=== PATIENT | male | born 1995 | race Caucasian/White ===

== ENCOUNTER 2021-02-13 02:02 | Outpatient (CLI) | payer SELFPAY | END 2021-02-13 02:03 | disposition critical access hospital (66) | LOC: EMS 02:02 | DX: S01.01XA Laceration without foreign body of scalp, initial encounter (principal); S06.9X9A Unspecified intracranial injury with loss of consciousness of unspecified duration, initial encounter; Y04.8XXA Assault by other bodily force, initial encounter; Y92.481 Parking lot as the place of occurrence of the external cause | CPT/HCPCS: A0425; A0429 ==

== ENCOUNTER 2021-02-13 02:35 | Emergency (ER) | payer SELFPAY ==
[2021-02-13] MEDS ORDERED: KETOROLAC 15 MG/ML VIAL IVP STA (03:03)
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
[2021-02-13 03:18] LABS: BASOPHILS # (AUTO) 0.1 10^3/uL (0.0-0.1); BASOPHILS % (AUTO) 0.9 %; EOSINOPHILS # (AUTO) 0.1 10^3/uL (0.0-0.7); EOSINOPHILS % (AUTO) 1.7 %; HCT - HEMATOCRIT 42.4 % (42.0-52.0); HGB - HEMOGLOBIN 15.6 g/dL (14.0-18.0); LYMPHOCYTES # (AUTO) 1.5 10^3/uL (1.5-3.5); LYMPHOCYTES % (AUTO) 23.8 %; MEAN CORPUSCULAR HEMOGLOBIN 33.2 pg (27.0-31.0); MEAN CORPUSCULAR HGB CONC 36.8 g/dL (32.0-36.0); MEAN CORPUSCULAR VOLUME 90.2 fL (80.0-94.0); MEAN PLATELET VOLUME 9.6 fL (7.4-11.4); MONOCYTES # (AUTO) 0.4 10^3/uL (0.0-1.0); MONOCYTES % (AUTO) 6.4 %; NEUTROPHILS # (AUTO) 4.3 10^3/uL (1.5-6.6); PLT - PLATELET COUNT 173 10^3/uL (130-450); RED CELL DISTRIBUTION WIDTH 12.8 % (12.0-15.0); WHITE BLOOD COUNT 6.4 x10^3/uL (4.8-10.8)
[2021-02-13 03:30] LABS: ALBUMIN 4.6 g/dL (3.2-5.5); ALBUMIN/GLOBULIN RATIO 1.4 (1.0-2.2); BILIRUBIN,TOTAL 1.3 mg/dL (0.2-1.0); CALCIUM 9.1 mg/dL (8.5-10.3); CREATININE 0.8 mg/dL (0.6-1.2); ETOH - ETHANOL 187.5 mg/dL; POTASSIUM 3.3 mmol/L (3.5-5.0)
[2021-02-13 06:11] VITALS: BP 133/81
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
== END 2021-02-13 06:18 | disposition home or self-care (01) ==
LOC: EDUNIT# → ED 02:35
DX: S09.90XA Unspecified injury of head, initial encounter (principal); S22.39XA Fracture of one rib, unspecified side, initial encounter for closed fracture; S00.01XA Abrasion of scalp, initial encounter; W03.XXXA Other fall on same level due to collision with another person, initial encounter; Y93.89 Activity, other specified; Y92.89 Other specified places as the place of occurrence of the external cause; F17.200 Nicotine dependence, unspecified, uncomplicated
CPT/HCPCS: 36415; 80053; 80320; 83690; 85025; 96374; 99284

== ENCOUNTER 2023-02-07 00:21 | Emergency (ER) | payer OTHER ==
[2023-02-07 00:35] VITALS: BP 157/104
--- NOTE | 2023-02-07 01:22 | ED Physician Documentation ---
PD HPI MALE - Stated complaint Stated Complaint: MALE - Chief complaint Chief Complaint: Heent - History obtained from History obtained from: Patient - Additional information Additional information: HPI from patient. Patient had vasectomy in [facility] [place] (Dr. Edge). Si nce Monday, especially today, c/o pain and swelling bilateral scrotum, more pronounced at/around left scrotum. Worse with palpation, movement. No injury aside from the procedure itself. Denies fevers. He has been given a five day course of QID keflex, which was to be started the day before the procedure. He says he has been taking very few of these medications, and only sporadically. He has vicodin rx at home, has taken only one at a time, and only partial relief of pain. For some reason, did not take this tonight. Denies bleeding, denies penile discharge. Review of Systems Constitutional: denies: Fever, Chills, Sweats GI: denies: Abdominal Pain, Nausea, Vomiting : denies: Dysuria, Frequency, Incontinent PD PAST MEDICAL HISTORY - Past Surgical History Past Surgical History: No - Present Medications Home Medications: Ambulatory Orders Medication Instructions Recorded Confirmed HYDROcod/ACETAM 5/325 [[place] 5/325] 1 - 2 ea PO Q6H PRN #15 tablet 12/16/15 cephALEXin [Keflex] 500 mg PO Q6H #20 cap 02/07/23 oxyCODONE [Roxicodone] 5 - 10 mg PO Q6H PRN #14 tablet 02/07/23 - Allergies Allergies/Adverse Reactions: Allergies Allergy/AdvReac Type Severity Reaction Status Date / Time No Known Drug Allergies Allergy Verified 02/13/21 02:52 - Social History Does the pt smoke?: Yes Smoking Status: Current every day smoker Does the pt drink ETOH?: No Does the pt have substance abuse?: No - Immunizations Immunizations are current?: No Immunizations: TDAP >10years/unknown PD ED PE NORMAL - Vitals Vital signs reviewed: Yes - General General: Alert and oriented X 3, No acute distress, Well developed/nourished - Abdomen Abdomen: Normal bowel sounds, Soft, Non tender, Non distended - Male Male : Other PD ED PE EXPANDED - Male Male : Circumcised, Testes descended junaid, Normal lie/cremastaric. No: Skin lesions, Discharge, Tenderness Male visual: 1 - bruising (faint bruising without large areas of confluence. No significant swelling), laceration, tenderness (mild tenderness) 2 - laceration (surgical incision site is clean, dry, intact) 3 - laceration (surgical site is clear, dry , intact) Results - Vitals Vitals: Oxygen O2 Source Room air PD Medical Decision Making - ED course ED course: neither testicle is particularly TTP (some TTP that seems within reasonable amount expected a few days out from such a procedure), similar with the swelling (seems appropriate to recent procedure). There is heat to touch nor erythema, discharge, nor fluctuance to suggest infection. However, as he didn't complete his five-day QID keflex, missing some doses, skipping entire days as well, I gave patient 500mg PO keflex in ED and provided course for new 5-day QID keflex for him to restart today and take the full five days as prescribed. Patient appears quite comfortable and in NAD. I offered him to stay until 6 AM for testicular US to assess for torsion, though seems unlikely given his lesser degree of discomfort than would typically be present if torsion. He also offered to leave, come back anytime after 6 AM but before 12 midnight for US. He tells me he is unsure if he will do this. 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 I provided work note for several more days. Lastly , I provide rx for oxycodone to be used IN PLACE of the pablo din if he is getting inadequate symptom relief with the vicodin. Departure - Departure Disposition: 01 Home, Self Care Clinical Impression: Post-operative pain Condition: Good Instructions: ED Post Op Pain Prescriptions: cephALEXin [Keflex] 500 mg PO Q6H #20 cap oxyCODONE [Roxicodone] 5 - 10 mg PO Q6H PRN #14 tablet PRN Reason: Pain >8 Comments: I have electronically submitted prescriptions for Keflex (antibiotic) and oxycodone (narcotic/opiate pain medication) to the [facility] in [facility]. Since you were not taking the antibiotic as prescribed, I would recommend that you take a 5-day course of this antibiotic starting today (in other words, because of missed doses, I would consider this as "starting over" with the intended 5-day course of the antibiotic). To simplify things, I have prescribed a 5-day course of the Keflex and you are given the first dose in the emergency department tonight. As for the oxycodone, most people find it is stronger than Vicodin. You can use either the oxycodone or the Vicodin, whichever is more effective for your pain. However, do not take these 2 medications within 6 hours of each other. I am prescribing a short course of narcotic pain medication for you. These are potentially dangerous and addictive medications that should be used carefully. These medications may constipate you. Take an [id number] stool softener (docusate) twice daily with plenty of water while taking these medications. If you go 24 hours without a bowel movement, take [id number] miralax, per package instructions. Do not drink or drive while taking these medications. If you received narcotic or sedating medications while in the emergency dep artment, do not drive for 24 hours. Store this medication in a safe, secure place and out of reach of children. It is a violation of federal law to give or sell this medication to another person or to use in a manner other than prescribed. The ED will not refill narcotic prescriptions, including prescriptions lost or stolen. To dispose of unwanted medications: 1. [facility] at [address] in [place] has a medication drop box. They accept prescription medications (in pill form) Monday through Monday 9:00 a.m. to 5:00 p.m. 2. The [facility] [employer] accepts prescription medications (in pill form only) for disposal year round. Call for more information. 3. Contact the [facility] for the next [facility] sponsored prescription drug collection event. , [phone], or [phone]; Forms: Activity restrictions Discharge Date/Time: 02/07/23 02:10
[2023-02-07] MEDS ORDERED: cephALEXin 250 MG CAPSULE PO STA (01:51)
[2023-02-07] MEDS ORDERED: oxyCODONE 5 MG TABLET PO STA (01:51)
== END 2023-02-07 02:10 | disposition home or self-care (01) ==
LOC: ED 00:21
DX: G89.18 Other acute postprocedural pain (principal); N50.82 Scrotal pain; F17.200 Nicotine dependence, unspecified, uncomplicated
CPT/HCPCS: 99282; 99283; A9270